=== PATIENT | male | born 1960 | race African-American/Black ===

== ENCOUNTER 2022-05-12 02:41 | Emergency (ER) | payer MEDICAID ==
[~2022-05-12] VITALS: Ht 177.8 cm; Wt 91.0 kg
[2022-05-12 02:43] VITALS: BP 160/102
[2022-05-12] MEDS ORDERED: LIDOCAINE HCL/PF 1% 10 MG/ML 5ML VIAL INFIL ONE (03:30)
[2022-05-12] MEDS ORDERED: ACETAMINOPHEN 325MG TABLET PO ONE (03:30)
[2022-05-12] MEDS ORDERED: BACITRACIN ZINC OINT UDPKT TOP ONE (03:30)
[2022-05-12] MEDS ORDERED: TETANUS, DIPHTHERIA, PERTUSSIS VAC/PF 0.5ML (>10YR OLD) IM ONE ×2 (03:30→06:45)
[2022-05-12] MEDS ORDERED: ACET-2708 MT (06:17)
== END 2022-05-12 06:53 | disposition home or self-care (01) ==
LOC: ER 02:41
DX: S61.412A Laceration without foreign body of left hand, initial encounter (principal); X99.1XXA Assault by knife, initial encounter; Y93.89 Activity, other specified; Y92.89 Other specified places as the place of occurrence of the external cause
CPT/HCPCS: 12001; 73130; 90471; 90715; 99283; J3490